=== PATIENT | male | born 2000 | race Caucasian/White ===

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

== ENCOUNTER 2022-12-29 21:58 | Emergency (ER) | payer MEDICAID, OTHER ==
[~2022-12-29] VITALS: Ht 180.3 cm; Wt 96.6 kg
[~2022-12-29 21:58] MED LIST: IBUP-1022 PO
[2022-12-29 22:52] LABS: BASO # 0.1 10^3/uL (0.0-0.2); BASO % 0.5 % (0.0-1.0); EOS # 0.2 10^3/uL (0.0-0.5); EOS % 1.5 % (0.0-3.0); HEMATOCRIT 41.4 % (42.0-52.0); HEMOGLOBIN 14.2 g/dl (13.5-17.5); LYMPH # 3.3 10^3/uL (1.5-5.0); LYMPH % 28.8 % (24.0-44.0); MEAN CORPUSCULAR HEMOGLOBIN 31.4 pg (27.0-33.0); MEAN CORPUSCULAR HGB CONC 34.3 g/dl (32.0-36.5); MEAN CORPUSCULAR VOLUME 91.6 fl (80.0-96.0); MONO # 0.7 10^3/uL (0.0-0.8); MONO % 6.1 % (2.0-8.0); NEUTROPHILS # 7.3 10^3/uL (1.5-8.5); NEUTROPHILS % 62.8 % (36.0-66.0); PLATELET COUNT, AUTOMATED 275 10^3/uL (150-450); RED BLOOD COUNT 4.52 10^6/uL (4.30-6.10); WHITE BLOOD COUNT 11.5 10^3/uL (4.0-10.0)
[2022-12-29 23:12] LABS: BLOOD UREA NITROGEN 14 MG/DL (9-23); CALCIUM LEVEL 9.6 MG/DL (8.5-10.1); CARBON DIOXIDE LEVEL 28 MMOL/L (20-31); CHLORIDE LEVEL 104 MMOL/L (98-107); CREATININE FOR GFR 0.96 MG/DL (0.70-1.30); GLOMERULAR FILTRATION RATE > 60.0 (>60); GLUCOSE, FASTING 95 MG/DL (60-100); POTASSIUM SERUM 3.8 MMOL/L (3.5-5.1); SODIUM LEVEL 141 MMOL/L (136-145)
[2022-12-29 23:24] VITALS: BP 156/74; TEMP 98.1; O2SAT 100
[2022-12-30] MEDS ORDERED: OXYCODONE/APAP 5MG/325MG(HOME DOSE PACK) PO ONE (01:00)
[2022-12-30] MEDS ORDERED: NS 1,000 ML IV ONE (01:00)
[2022-12-30] MEDS ORDERED: KETOROLAC 30 MG/ML 1ML VIAL IV ONE (01:00)
[2022-12-30] MEDS ORDERED: TAMSULOSIN 0.4 MG CAP PO ONE (01:00)
[2022-12-30] MEDS ORDERED: ONDANSETRON 4MG 2ML VIAL IV ONE (01:00)
[2022-12-30] MEDS ORDERED: ONDA4TAB6 PO (01:03)
[2022-12-30] MEDS ORDERED: KETO10TAB PO (01:03)
[2022-12-30] MEDS ORDERED: PERC5TAB12 PO (01:03)
[2022-12-30] MEDS ORDERED: FLOM0.4C39 PO (01:03)
== END 2022-12-30 02:49 | disposition home or self-care (01) ==
LOC: M ED 21:58
DX: N13.2 Hydronephrosis with renal and ureteral calculous obstruction (principal); I88.0 Nonspecific mesenteric lymphadenitis; F12.10 Cannabis abuse, uncomplicated; F17.200 Nicotine dependence, unspecified, uncomplicated; Z88.0 Allergy status to penicillin; Z88.8 Allergy status to other drugs, medicaments and biological substances; Z79.83 Long term (current) use of bisphosphonates; Z79.899 Other long term (current) drug therapy
CPT/HCPCS: 74176; 80048; 81001; 85025; 96361; 96374; 96375; 99283; J1885; J2405

== ENCOUNTER → 2024-06-08 | Outpatient (REF) | payer OTHER, MEDICAID ==
[~2024-06-08] MED LIST changes: +FLOM0.4C39 PO; +KETO10TAB PO; +ONDA-282 PO; +PERC5TAB12 PO
== END ==
LOC: M SFHCPLAZ 15:23
PROVIDERS: ATTEND Family Medicine
DX: K21.9 Gastro-esophageal reflux disease without esophagitis (principal)

== ENCOUNTER 2024-08-02 02:27 | Emergency (ER) | payer MEDICAID, OTHER ==
[~2024-08-02] VITALS: Ht 180.3 cm; Wt 94.2 kg
[2024-08-02 02:32] VITALS: TEMP 97.6
[2024-08-02 03:34] LABS: CARBOXYHEMOGLOBIN 0.8 % (0.0-1.5); VENOUS BASE EXCESS -1.6 (-2.0-2.0); VENOUS HCO3 22.5 MMOL/L (23.0-27.0); VENOUS O2 SATURATION 97.2 % (60.0-80.0); VENOUS PARTIAL PRESSURE CO2 36.8 mmHg (38.0-50.0); VENOUS PARTIAL PRESSURE O2 91.5 mmHg (30.0-50.0); VENOUS PH 7.405 UNITS (7.330-7.430); VENOUS STANDARD HCO3 23.1 MMOL/L; VENOUS TOTAL CO2 23.7 MMOL/L (24.0-28.0)
[2024-08-02 03:42] LABS: BASO # 0.1 10^3/uL (0.0-0.2); BASO % 0.4 % (0.0-1.0); EOS % 0.1 % (0.0-3.0); HEMATOCRIT 43.3 % (42.0-52.0); HEMOGLOBIN 15.1 g/dl (13.5-17.5); LYMPH # 2.8 10^3/uL (1.5-5.0); LYMPH % 15.8 % (24.0-44.0); MEAN CORPUSCULAR HEMOGLOBIN 31.4 pg (27.0-33.0); MEAN CORPUSCULAR HGB CONC 34.9 g/dl (32.0-36.5); MONO # 1.1 10^3/uL (0.0-0.8); NEUTROPHILS # 13.8 10^3/uL (1.5-8.5); NEUTROPHILS % 77.4 % (36.0-66.0); PLATELET COUNT, AUTOMATED 274 10^3/uL (150-450); RED BLOOD COUNT 4.81 10^6/uL (4.30-6.10); WHITE BLOOD COUNT 17.8 10^3/uL (4.0-10.0)
[2024-08-02 04:07] LABS: BLOOD UREA NITROGEN 13 MG/DL (9-23); CALCIUM LEVEL 9.5 MG/DL (8.5-10.1); CARBON DIOXIDE LEVEL 24 MMOL/L (20-31); CHLORIDE LEVEL 106 MMOL/L (98-107); CREATININE FOR GFR 0.83 MG/DL (0.70-1.30); GLOMERULAR FILTRATION RATE > 60.0 (>60); GLUCOSE, FASTING 89 MG/DL (60-100); SODIUM LEVEL 138 MMOL/L (136-145)
[2024-08-02 06:30] VITALS: BP 137/82
[2024-08-02 06:45] VITALS: O2SAT 100
== END 2024-08-02 07:38 | disposition home or self-care (01) ==
LOC: M ED 02:27
DX: R55 Syncope and collapse (principal); D72.829 Elevated white blood cell count, unspecified; F41.9 Anxiety disorder, unspecified; Z88.0 Allergy status to penicillin; Z88.1 Allergy status to other antibiotic agents; Z87.442 Personal history of urinary calculi; Z79.899 Other long term (current) drug therapy; Z79.83 Long term (current) use of bisphosphonates